=== PATIENT | female | born 1995 | race Caucasian/White ===

== ENCOUNTER 2017-01-04 06:56 | Inpatient (IN) | payer OTHER ==
[~2017-01-04] VITALS: Ht 167.6 cm; Wt 71.7 kg
[2017-01-04 09:51] LABS: HEMOGLOBIN 12.5 gm/dl (12.3-15.3); RED BLOOD COUNT 4.19 M/UL (4.00-5.10); WHITE BLOOD COUNT 12.9 K/UL (4.5-11.0)
[2017-01-05 02:53] LABS: HEMOGLOBIN 10.8 gm/dl (12.3-15.3)
[2017-01-06] MEDS ORDERED: COLACE 100MG C100 MG PO (09:43)
== END 2017-01-06 13:23 | disposition home or self-care (01) | DRG 775 ==
LOC: GENOP 06:56 → OB 09:30
PROVIDERS: ADMIT Obstetrics & Gynecology
PROC: 10E0XZZ Delivery of Products of Conception, External Approach (ICD-10-PCS; principal; 2017-01-04)
PROC: 0HQ9XZZ Repair Perineum Skin, External Approach (ICD-10-PCS; 2017-01-04)
DX: O71.82 Other specified trauma to perineum and vulva (principal); Z37.0 Single live birth; Z88.0 Allergy status to penicillin; Z3A.38 38 weeks gestation of pregnancy; Z28.21 Immunization not carried out because of patient refusal
CPT/HCPCS: 36415; 51702; 81001; 85014; 85018; 85025; J2300; J2590; J2795; J3430; J7120